=== PATIENT | female | born 1995 | race Caucasian/White ===

== ENCOUNTER 2018-02-18 05:59 | Emergency (ER) | payer SELFPAY ==
--- NOTE | 2018-02-18 06:33 | ER ---
Nurse's Notes [facility] Name: Kathy Gonzalez Age: 22 yrs Sex: Female : 1995 Arrival Date: 02/18/2018 Time: 06:09 Bed 15 Private MD: Diagnosis: Encounter for screening, unspecified Presentation: 02/18 06:20 Presenting complaint: Patient states: "I have been having a cough for about a week now, bs1 I think its a respiratory infection but im 4 weeks so I cant take much." Reports fever x2 days. Transition of care: patient was not received from another setting of care. Onset of symptoms was February 11, 2018. Risk Assessment: Do you want to hurt yourself or someone else? Patient reports no desire to harm self or others. Initial Sepsis Screen: Does the patient meet any 2 criteria? HR > 90 bpm. Does the patient have a suspected source of infection? No. Patient's initial sepsis screen is negative. Care prior to arrival: None. 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 - Social history:: Smoking status: Patient/guardian denies using tobacco. - Ebola Screening: : Patient negative for fever greater than or equal to 101.5 degrees Fahrenheit, and additional compatible Ebola Virus Disease symptoms Patient denies exposure to infectious person. Screenin:24 Abuse screen: Denies threats or abuse. Denies injuries from another. Nutritional bs1 screening: No deficits noted. Tuberculosis screening: No symptoms or risk factors identified. Fall Risk None identified. Assessment: 06:24 General: Appears in no apparent distress. uncomfortable, ill, Behavior is calm, bs1 cooperative, appropriate for age. Pain: Complains of pain in chest congestion. Pain: Complains of pain in chest congestion, neck soreness. Neuro: Level of Consciousness is awake, alert, obeys commands, Oriented to person, place, time, situation, Appropriate for age. Neuro: Reports neck soreness. Cardiovascular: Denies chest pain, palpitations, Heart tones S1 S2 present Capillary refill < 3 seconds Patient's skin is warm and dry. Respiratory: Reports shortness of breath at rest on exertion cough that is productive, Airway is patent Trachea midline Respiratory effort is even, unlabored, Respiratory pattern is regular, symmetrical, Breath sounds are clear bilaterally. GI: No signs and/or symptoms were reported involving the gastrointestinal system. : No signs and/or symptoms were reported regarding the genitourinary system. EENT: No signs and/or symptoms were reported regarding the EENT system. Derm: Skin is intact. Musculoskeletal: Circulation, motion, and sensation intact. Capillary refill < 3 seconds, Range of motion: intact in all extremities. 06:40 Reassessment: Patient appears in no apparent distress at this time. Patient and/or bs1 family updated on plan of care and expected duration. Pain level reassessed. Patient is alert, oriented x 3, equal unlabored respirations, skin warm/dry/pink. Vital Signs: 06:20 BP 109 / 78; Pulse 92; Resp 17; Temp 98.8(O); Pulse Ox 100% ; Weight 57.15 kg (R); bs1 Height 5 ft. 4 in. (162.56 cm); Pain 4/10; 06:20 Body Mass Index 21.63 (57.15 kg, 162.56 cm) bs1 ED Course: 06:09 Patient arrived in ED. es 06:11 [facility] snw 06:11 Dallas Flores MD is Attending Physician. snw 06:14 Fadia Wick, HOMERO is Primary Nurse. bs1 06:21 Triage completed. bs1 06:26 Patient has correct armband on for positive identification. Bed in low position. Call bs1 light in reach. Side rails up X 1. Pulse ox on. NIBP on. 06:26 Arm band placed on right wrist. bs1 06:39 No provider procedures requiring assistance completed. Patient did not have IV access bs1 during this emergency room visit. Administered Medications: No medications were administered Outcome: 06:32 Discharge ordered by . snw 06:39 Discharged to home ambulatory. bs1 06:39 Condition: stable 06:39 Discharge instructions given to patient, Instructed on discharge instructions, follow up and referral plans. medication usage, Demonstrated understanding of instructions, follow-up care, medications, Prescriptions given X 1. 06:40 Patient left the ED. bs1 Signatures: Cuca Aguirre, MARIA ANTONIA-C EMERGENCY TELECOMMUNICATIONS DISPATCHER-[place] Birgit Sweet Brittany, RN RN bs1
--- NOTE | 2018-02-19 06:40 | EDPHYS ---
Physician Documentation [facility] Name: Kathy Gonzalez Age: 22 yrs Sex: Female : 1995 Arrival Date: 02/18/2018 Time: 06:09 Bed 15 Private MD: ED Physician Dallas Flores HPI: 02/18 09:22 This 22 yrs old Female presents to ER via Ambulatory with complaints of snw Congestion, Cough, Fever, 4weeks preg. 09:22 Onset: The symptoms/episode began/occurred gradually, 4 day(s) ago, and became snw persistent. Associated signs and symptoms: Pertinent positives: cough, nasal discharge. The patient has experienced similar episodes in the past. has initial Ob appt this week. states she is 4 weeks , recommend tylenol, increase fluids, humidifier. 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 - Social history:: Smoking status: Patient/guardian denies using tobacco. - Ebola Screening: : Patient negative for fever greater than or equal to 101.5 degrees Fahrenheit, and additional compatible Ebola Virus Disease symptoms Patient denies exposure to infectious person. ROS: 09:16 Constitutional: Negative for fever, chills, and weight loss, ENT: Negative for injury, snw pain, positive nasal discharge, Neck: Negative for injury, pain, and swelling. Exam: 09:16 Constitutional: This is a well developed, well nourished patient who is awake, alert, snw and in no acute distress. Head/Face: Normocephalic, atraumatic. Eyes: Pupils equal round and reactive to light, extra-ocular motions intact. Lids and lashes normal. Conjunctiva and sclera are non-icteric and not injected. Cornea within normal limits. Periorbital areas with no swelling, redness, or edema. Neck: Trachea midline, no thyromegaly or masses palpated, and no cervical lymphadenopathy. Supple, full range of motion without nuchal rigidity, or vertebral point tenderness. No Meningismus. Chest/axilla: Normal chest wall appearance and motion. Nontender with no deformity. No lesions are appreciated. Cardiovascular: Regular rate and rhythm with a normal S1 and S2. No gallops, murmurs, or rubs. Normal PMI, no JVD. No pulse deficits. Respiratory: Lungs have equal breath sounds bilaterally, clear to auscultation and percussion. No rales, rhonchi or wheezes noted. No increased work of breathing, no retractions or nasal flaring. Abdomen/GI: Soft, non-tender, with normal bowel sounds. No distension or tympany. No guarding or rebound. No evidence of tenderness throughout. Back: No spinal tenderness. No costovertebral tenderness. Full range of motion. Skin: Warm, dry with normal turgor. Normal color with no rashes, no lesions, and no evidence of cellulitis. MS/ Extremity: Pulses equal, no cyanosis. Neurovascular intact. Full, normal range of motion. Neuro: Awake and alert, GCS 15, oriented to person, place, time, and situation. Cranial nerves II-XII grossly intact. Motor strength 5/5 in all extremities. Sensory grossly intact. Cerebellar exam normal. Normal gait. 09:16 ENT: External ear(s): are unremarkable, Ear canal(s): are normal, TM's: are normal, Nose: Nasal mucosa: edematous, nasal drainage, and is seen coming from both nares, that is clear, Mouth: is normal, Posterior pharynx: is normal, Voice: is normal. Vital Signs: 06:20 BP 109 / 78; Pulse 92; Resp 17; Temp 98.8(O); Pulse Ox 100% ; Weight 57.15 kg (R); bs1 Height 5 ft. 4 in. (162.56 cm); Pain 4/10; 06:20 Body Mass Index 21.63 (57.15 kg, 162.56 cm) bs1 MDM: 06:21 Patient medically screened. snw 09:23 Data reviewed: vital signs, nurses notes. Data interpreted: Pulse oximetry: on room air snw is 100 %. Interpretation: normal. Counseling: I had a detailed discussion with the patient and/or guardian regarding: the historical points, exam findings, and any diagnostic results supporting the discharge/admit diagnosis, the need for outpatient follow up, to return to the emergency department if symptoms worsen or persist or if there are any questions or concerns that arise at home. Special discussion: Based on the history and exam findings, there is no indication for further emergent testing or inpatient evaluation. I discussed with the patient/guardian the need to see the OB Gyne specialist for further evaluation of the symptoms. I discussed with the patient/guardian the need to see the primary care provider for further evaluation of the symptoms. Medical screen evaluation completed. EMTALA emergency medical condition absent. Administered Medications: No medications were administered Disposition: 02/18/18 06:32 Discharged to Home. Impression: Encounter for screening, unspecified. - Condition is Stable. - Discharge Instructions: Upper Respiratory Infection, Adult, First Trimester of , Cough, Adult, Eating Plan for Women. - Prescriptions for Vitamin 27- 0.8 mg Oral Tablet - take 1 tablet by ORAL route once daily; 30 tablet. - Medication Reconciliation Form, Thank You Letter, Antibiotic Education, Prescription Opioid Use form. - Follow up: Private Physician; When: 2 - 3 days; Reason: Recheck today's complaints, Continuance of care, Re-evaluation by your physician. Follow up: Emergency Department; When: As needed; Reason: Worsening of condition. Signatures: Cuca Aguirre, ONLINE MEDIA DIRECTOR-C ONLINE MEDIA DIRECTOR-Fadia Means RN RN bs1 Corrections: (The following items were deleted from the chart) 06:40 06:32 02/18/2018 06:32 Discharged to Home. Impression: Encounter for screening, bs1 unspecified. Condition is Stable. Discharge Instructions: Upper Respiratory Infection, Adult, First Trimester of , Eating Plan for Women. Prescriptions for Vitamin 27-0.8 mg Oral Tablet - take 1 tablet by ORAL route once daily; 30 tablet. and Forms are Medication Reconciliation Form, Thank You Letter, Antibiotic Education, Prescription Opioid Use. Follow up: Private Physician; When: 2 - 3 days; Reason: Recheck today's complaints, Continuance of care, Re-evaluation by your physician. Follow up: Emergency Department; When: As needed; Reason: Worsening of condition. snw
== END 2018-02-18 06:40 | disposition home or self-care (01) ==
LOC: ER 05:59
DX: Z13.9 Encounter for screening, unspecified (principal); Z3A.01 Less than 8 weeks gestation of pregnancy
CPT/HCPCS: 99283